=== PATIENT | female | born 1965 | race Caucasian/White ===

== ENCOUNTER → 2021-01-23 12:17 | Outpatient (CLI) | payer OTHER, SELFPAY ==
--- NOTE | 2021-01-23 12:20 | DI.MG.S_ITS ---
BILATERAL DIGITAL SCREENING MAMMOGRAM 3D/2D WITH CAD: 01/23/2021 CLINICAL: Routine screening. Comparison is made to exams dated: 01/18/2018 mammogram and 01/25/2018 mammogram - outside facility. There are scattered fibroglandular elements in both breasts. Current study was also evaluated with a Computer Aided Detection (CAD) system. No significant masses, calcifications, or other findings are seen in either breast. There has been no significant interval change. IMPRESSION: NEGATIVE There is no mammographic evidence of malignancy. A 1 year screening mammogram is recommended. This exam was interpreted at Station ID: [id number]. NOTE: For mammograms, a report in lay terms will be sent to the patient. Approximately 15% of breast malignancies will not be visualized mammographically. In the management of a palpable breast mass, a negative mammogram must not discourage biopsy of a clinically suspicious lesion. Electronically Signed By: Dario black/pinky:01/25/2021 09:31:51 letter sent: Normal Exam ACR BI-RADS Category 1: Negative [id number]
== END ==
PROVIDERS: Referring Provider Student in an Organized Health Care Education/Training Program; Visit Provider Student in an Organized Health Care Education/Training Program
DX: Z12.31 Encounter for screening mammogram for malignant neoplasm of breast (principal)
CPT/HCPCS: 77063; 77067

== ENCOUNTER → 2022-10-17 15:05 | Outpatient (CLI) | payer BC, SELFPAY ==
[2022-10-17 17:53] LABS: Creatinine Urine Random 64.2 mg/dL
[2022-10-17 18:01] LABS: Microalbumin Urine Random < 0.6 mg/dL (0-1.6)
== END ==
PROVIDERS: PCP Family Medicine; Visit Provider Family Medicine
DX: R03.0 Elevated blood-pressure reading, without diagnosis of hypertension (principal)
CPT/HCPCS: 82043; 82570

== ENCOUNTER → 2022-10-26 12:47 | Outpatient (CLI) | payer BC, SELFPAY ==
[2022-10-26 13:53] LABS: Hematocrit 38.5 % (36-46); Hemoglobin 13.1 g/dL (12.0-16.0); Mean Corpuscular Hemoglobin 30.4 PG (26-34); Mean Corpuscular Volume 89.3 fL (80-100); Platelet Count 230 X10^3/uL (150-400); Red Blood Cell Count 4.31 X10^6/uL (4.0-5.2); Red Cell Distribution Width 13.3 % (11.6-14.8); White Blood Cell Count 4.9 X10^3/uL (4.5-11.0)
[2022-10-26 14:46] LABS: BUN Creatinine Ratio 30.8 (6-22); Blood Urea Nitrogen 20 mg/dL (7-17); Calcium 9.6 mg/dL (8.4-10.2); Carbon Dioxide 28 mmol/L (22-32); Chloride 102 mmol/L (98-107); Estimated Glomerular Filt Rate > 60 mL/min (>60); Glucose 92 mg/dL (70-100); HEMOLYSIS < 15 (0-50); Potassium 4.3 mmol/L (3.4-5.1); Sodium 136 mmol/L (137-145)
[2022-10-26 15:13] LABS: TSH w/ Reflex to FT4 0.57 uIU/mL (0.47-4.68)
== END ==
PROVIDERS: PCP Family Medicine; Referring Provider Family Medicine; Visit Provider Family Medicine
DX: I10 Essential (primary) hypertension (principal); M35.1 Other overlap syndromes; M79.7 Fibromyalgia; R53.83 Other fatigue
CPT/HCPCS: 36415; 80048; 84443; 85027

== ENCOUNTER → 2022-12-23 09:37 | Outpatient (CLI) | payer MEDICARE, SELFPAY ==
--- NOTE | 2022-12-23 | DI.CT.S_ITS ---
PROCEDURE: CT CERVICAL SPINE WO CON INDICATIONS: Spinal stenosis, cervical region TECHNIQUE: Noncontrast 3 mm thick sections acquired from the skull base to the T4 level. Sagittal and coronal reformats were then constructed. For radiation dose reduction, the following was used: automated exposure control, adjustment of mA and/or kV according to patient size. COMPARISON: [facility], CR, XR CERVICAL SPINE 6+ VIEWS, 12/06/2022, 15:12. FINDINGS: Image quality: Excellent. Bones: No fractures or dislocations. Visualized superior ribs are intact. Anterior fixation hardware can be seen C4 through C7. The fusion plate is well seated. No screw abnormality can be seen. Disc spacers are seen throughout the fused region. No findings of hardware failure or hardware loosening are seen. Relatively prominent degenerative change can be seen involving the C1-C2 interface anteriorly. At C2-C3, there is moderate disc space narrowing. Bridging anterior osteophytes are seen. At C3-C4, relatively prominent bridging anterior osteophytes are seen. Moderate disc space narrowing is seen. Mild posteriorly directed endplate osteophytes can be seen at this level. There is moderate to severe left-sided and moderate right-sided neural foraminal narrowing. Moderate central canal narrowing is seen. At the C6-C7 level, posteriorly directed endplate osteophytes are seen, with moderate to severe central canal narrowing. There is moderate right-sided and moderate to severe left-sided neural foraminal narrowing. At C6-C7, moderate disc space narrowing can be seen. Bridging and tear osteophytes are seen at this level. Soft tissues: Prevertebral soft tissues are normal in thickness. No paravertebral hematomas. No apical pneumothoraces. IMPRESSION: Intact appearing C4 through C7 anterior fixation hardware. Multiple levels of significant cervical spine degenerative change can be seen. If it would be helpful for clinical management decision making, please consider a dedicated cervical spine MRI for further evaluation (assuming that there is no contraindication). Dictated by: Toñito Culver M.D. on 12/23/2022 at 9:53 Approved by: Toñito Culver M.D. on 12/23/2022 at 9:56
== END ==
PROVIDERS: PCP Family Medicine; Referring Provider Physical Medicine & Rehabilitation Pain Medicine; Visit Provider Physical Medicine & Rehabilitation Pain Medicine
DX: M48.02 Spinal stenosis, cervical region (principal); M47.812 Spondylosis without myelopathy or radiculopathy, cervical region; Z98.1 Arthrodesis status
CPT/HCPCS: 72125

== ENCOUNTER → 2022-12-26 11:06 | Outpatient (CLI) | payer MEDICARE, SELFPAY ==
--- NOTE | 2022-12-26 11:07 | DI.MG.S_ITS ---
BILATERAL DIGITAL SCREENING MAMMOGRAM 3D/2D WITH CAD: 12/26/2022 CLINICAL: Routine screening. Family history of breast cancer. Comparison is made to exams dated: 01/23/2021 mammogram - [facility], 01/25/2018 mammogram, and 01/18/2018 mammogram - outside facility. There are scattered areas of fibroglandular density in both breasts (category b / 25%-50% glandular tissue). Current study was also evaluated with a Computer Aided Detection (CAD) system. There is an asymmetry in the left breast posterior depth central to the nipple seen on the craniocaudal view only. This is more prominent. No other significant masses, calcifications, or other findings are seen in either breast. IMPRESSION: INCOMPLETE: NEEDS ADDITIONAL IMAGING EVALUATION The asymmetry in the left breast is indeterminate. Additional views with possible ultrasound are recommended. Based on the Tyrer Cuzick model (a risk assessment model) the patient's lifetime risk is 7.0% and her 10 year risk is 2.5%. According to the ACR, ACS, and NCCN guidelines, an annual breast MRI exam along with mammogram is recommended if the patient's lifetime risk is 20% or greater. This exam was interpreted at Station ID: [id number]. NOTE: For mammograms, a report in lay terms will be sent to the patient. Approximately 15% of breast malignancies will not be visualized mammographically. In the management of a palpable breast mass, a negative mammogram must not discourage biopsy of a clinically suspicious lesion. Electronically Signed By: Ruben Hill M.D. lc/:12/26/2022 12:08:25 letter sent: Additional Imaging Needed ACR BI-RADS Category 0: Incomplete 3340F
== END ==
PROVIDERS: PCP Family Medicine; Referring Provider Family Medicine; Visit Provider Family Medicine
DX: Z12.31 Encounter for screening mammogram for malignant neoplasm of breast (principal); Z80.3 Family history of malignant neoplasm of breast
CPT/HCPCS: 77063; 77067

== ENCOUNTER → 2023-01-05 07:10 | Outpatient (CLI) | payer BC, SELFPAY ==
[2023-01-05 09:11] LABS: Hematocrit 36.3 % (36-46); Hemoglobin 12.2 g/dL (12.0-16.0); Mean Corpuscular HGB Conc 33.6 % (30-36); Mean Corpuscular Hemoglobin 30.3 PG (26-34); Mean Corpuscular Volume 90.1 fL (80-100); Platelet Count 233 X10^3/uL (150-400); Red Blood Cell Count 4.03 X10^6/uL (4.0-5.2); Red Cell Distribution Width 13.9 % (11.6-14.8); White Blood Cell Count 4.2 X10^3/uL (4.5-11.0)
[2023-01-05 09:28] LABS: Alanine Aminotransferase 23 IU/L (<35); Albumin 4.2 g/dL (3.5-5.0); Albumin Globulin Ratio 1.6 (1.0-2.8); Alkaline Phosphatase 65 U/L (38-126); Aspartate Aminotransferase 32 IU/L (14-36); BUN Creatinine Ratio 30.3 (6-22); Bilirubin Total 0.6 mg/dL (0.2-1.3); Blood Urea Nitrogen 23 mg/dL (7-17); Calcium 9.4 mg/dL (8.4-10.2); Carbon Dioxide 29 mmol/L (22-32); Chloride 104 mmol/L (98-107); Cholesterol 199 mg/dL (140-199); Estimated Glomerular Filt Rate > 60 mL/min (>60); Globulin 2.7 g/dL (1.7-4.1); Glucose 78 mg/dL (70-100); HDL Cholesterol 104 mg/dL (40-60); HEMOLYSIS < 15 (0-50); LDL Cholesterol Calculated 80 mg/dL (<100); Potassium 4.8 mmol/L (3.4-5.1); Sodium 139 mmol/L (137-145); Total Protein 6.9 g/dL (6.3-8.2); Triglycerides 75 mg/dL (35-150)
== END ==
PROVIDERS: PCP Family Medicine; Referring Provider Family Medicine; Visit Provider Family Medicine
DX: I10 Essential (primary) hypertension (principal); M35.1 Other overlap syndromes; M79.7 Fibromyalgia
CPT/HCPCS: 36415; 80053; 80061; 85027

== ENCOUNTER → 2023-01-19 08:43 | Outpatient (CLI) | payer BC, SELFPAY ==
--- NOTE | 2023-01-19 08:44 | DI.US.S_ITS ---
LIMITED ULTRASOUND OF LEFT BREAST: 01/19/2023 CLINICAL: Patient returns today to evaluate a focal asymmetry in the left breast. Comparison is made to exams dated: 01/19/2023 mammogram, 12/26/2022 mammogram, 01/23/2021 mammogram - [facility], and 01/25/2018 mammogram - outside facility. Color flow ultrasound of the left breast 11-12 o'clock region was performed. York scale images of the real-time examination were reviewed. There is a 0.4 cm x 0.4 cm x 0.2 cm oval mass with a circumscribed margin in the left breast at 11 o'clock middle depth 5 cm from the nipple. This oval mass is hypoechoic with posterior acoustic enhancement. This correlates with mammography findings. Color flow imaging demonstrates that there is no vascularity present. IMPRESSION: PROBABLY BENIGN The 0.4 cm x 0.4 cm x 0.2 cm oval mass in the left breast most likely is a complicated cyst or a lymph node and is probably benign. A follow-up left mammogram and an ultrasound in 6 months is recommended to demonstrate stability. This exam was interpreted at Station ID: [id number]. Electronically Signed By: Dario black/pinky:01/19/2023 09:49:14 letter sent: Followup Recommended Ultrasound BI-RADS: 3 Probably benign
--- NOTE | 2023-01-19 08:44 | DI.MG.S_ITS ---
UNILATERAL LEFT DIGITAL DIAGNOSTIC MAMMOGRAM 3D/2D WITH ADDITIONAL VIEWS: 01/19/2023 CLINICAL: Additional evaluation requested from prior study. Comparison is made to exams dated: 12/26/2022 mammogram, 01/23/2021 mammogram - [facility], and 01/25/2018 mammogram - outside facility. There are scattered areas of fibroglandular density in the left breast (category b / 25%-50% glandular tissue). There is a 0.5 cm oval focal asymmetry with an obscured margin in the left breast at 11 o'clock middle depth. This is seen in additional views. No other significant masses or calcifications are seen in the breast. IMPRESSION: INCOMPLETE: NEEDS ADDITIONAL IMAGING EVALUATION The 0.5 cm oval focal asymmetry in the left breast is indeterminate. An ultrasound is recommended. Based on the Tyrer Cuzick model (a risk assessment model) the patient's lifetime risk is 7.0% and her 10 year risk is 2.5%. According to the ACR, ACS, and NCCN guidelines, an annual breast MRI exam along with mammogram is recommended if the patient's lifetime risk is 20% or greater. This exam was interpreted at Station ID: [id number]. NOTE: For mammograms, a report in lay terms will be sent to the patient. Approximately 15% of breast malignancies will not be visualized mammographically. In the management of a palpable breast mass, a negative mammogram must not discourage biopsy of a clinically suspicious lesion. Electronically Signed By: Dario black/pinky:01/19/2023 09:47:37 ACR BI-RADS Category 0: Incomplete 3340F
== END ==
PROVIDERS: PCP Family Medicine; Referring Provider Family Medicine; Visit Provider Family Medicine
DX: R92.8 Other abnormal and inconclusive findings on diagnostic imaging of breast (principal); N63.22 Unspecified lump in the left breast, upper inner quadrant
CPT/HCPCS: 76642; 77065; G0279

== ENCOUNTER → 2023-10-05 08:40 | Outpatient (CLI) | payer BC, SELFPAY ==
--- NOTE | 2023-10-05 08:41 | DI.MG.S_ITS ---
UNILATERAL LEFT DIGITAL DIAGNOSTIC MAMMOGRAM 3D/2D SHORT-TERM FOLLOW-UP: 10/05/2023 CLINICAL: Patient returns for a 6 month follow up of the left breast. Comparison is made to exams dated: 01/19/2023 mammogram, 12/26/2022 mammogram, 01/23/2021 mammogram - [facility], and 01/25/2018 mammogram - outside facility. There are scattered areas of fibroglandular density in the left breast (category b / 25%-50% glandular tissue). There is a stable oval focal asymmetry in the left breast at 11 o'clock middle depth. No other significant masses or calcifications are seen in the breast. IMPRESSION: INCOMPLETE: NEEDS ADDITIONAL IMAGING EVALUATION The stable oval focal asymmetry in the left breast is indeterminate. An ultrasound is recommended. Based on the Tyrer Cuzick model (a risk assessment model) the patient's lifetime risk is 7.0% and her 10 year risk is 2.5%. According to the ACR, ACS, and NCCN guidelines, an annual breast MRI exam along with mammogram is recommended if the patient's lifetime risk is 20% or greater. This exam was interpreted at Station ID: [id number]. NOTE: For mammograms, a report in lay terms will be sent to the patient. Approximately 15% of breast malignancies will not be visualized mammographically. In the management of a palpable breast mass, a negative mammogram must not discourage biopsy of a clinically suspicious lesion. Electronically Signed By: Ruben Hill M.D. lc/:10/05/2023 09:42:47 ACR BI-RADS Category 0: Incomplete 3340F
--- NOTE | 2023-10-05 08:41 | DI.US.S_ITS ---
ULTRASOUND OF LEFT BREAST: 10/05/2023 CLINICAL: Late 6 month follow-up of cyst. Comparison is made to exams dated: 10/05/2023 mammogram, 01/19/2023 ultrasound, 01/19/2023 mammogram, 12/26/2022 mammogram, and 01/23/2021 mammogram - [facility]. Real-time ultrasound of the left breast was performed. York scale images of the real-time examination were reviewed. There is a 0.4 cm x 0.4 cm x 0.3 cm oval mass with a circumscribed margin in the left breast at 11 o'clock middle depth 5 cm from the nipple. This oval mass is hypoechoic with posterior acoustic enhancement. This correlates with mammography findings. Color flow imaging demonstrates that there is no vascularity present. IMPRESSION: PROBABLY BENIGN The 0.4 cm x 0.4 cm x 0.3 cm oval mass in the left breast most likely is a complicated cyst or a lymph node and is probably benign. A follow-up mammogram and an ultrasound in 6 months is recommended to demonstrate stability. This exam was interpreted at Station ID: [id number]. Electronically Signed By: Ruben Hill M.D. lc/:10/05/2023 09:43:59 letter sent: Followup Recommended Ultrasound BI-RADS: 3 Probably benign
== END ==
LOC: MAMMO 08:41
PROVIDERS: PCP Family Medicine; Referring Provider Family Medicine; Visit Provider Family Medicine
DX: R92.8 Other abnormal and inconclusive findings on diagnostic imaging of breast (principal); R92.322 Mammographic fibroglandular density, left breast; N63.22 Unspecified lump in the left breast, upper inner quadrant
CPT/HCPCS: 76642; 77065; G0279

== ENCOUNTER → 2024-03-26 15:10 | Outpatient (CLI) | payer BC, SELFPAY | PROVIDERS: PCP Family Medicine; Visit Provider Family Medicine | DX: N32.89 Other specified disorders of bladder (principal); R30.0 Dysuria | CPT/HCPCS: 87086 ==

== ENCOUNTER → 2024-04-12 13:42 | Outpatient (CLI) | payer BC, SELFPAY ==
--- NOTE | 2024-04-12 13:43 | DI.MG.S_ITS ---
BILATERAL DIGITAL DIAGNOSTIC MAMMOGRAM 3D/2D: 04/12/2024 CLINICAL: Patient returns for a 6 month follow up of the left breast, due for bilateral exam. Comparison is made to exams dated: 10/05/2023 mammogram, 01/19/2023 mammogram, 12/26/2022 mammogram, 01/23/2021 mammogram, and 10/05/2023 ultrasound - [facility]. There are scattered areas of fibroglandular density (category b / 25%-50% glandular tissue). There is a stable oval focal asymmetry in the left breast at 11 o'clock middle depth. No other significant masses, calcifications, or other findings are seen in either breast. IMPRESSION: INCOMPLETE: NEED ADDITIONAL IMAGING EVALUATION The stable oval focal asymmetry in the left breast is indeterminate. A targeted ultrasound is recommended and will immediately follow. Based on the Tyrer Cuzick model (a risk assessment model) the patient's lifetime risk is 7.1% and her 10 year risk is 2.7%. According to the ACR, ACS, and NCCN guidelines, an annual breast MRI exam along with mammogram is recommended if the patient's lifetime risk is 20% or greater. This exam was interpreted at Station ID: [id number]. NOTE: For mammograms, a report in lay terms will be sent to the patient. Approximately 15% of breast malignancies will not be visualized mammographically. In the management of a palpable breast mass, a negative mammogram must not discourage biopsy of a clinically suspicious lesion. Electronically Signed By: Ramírez Fuentes M.D. [facility]/:04/12/2024 14:22:43 Entry: - 04/15/2024 15:18:15 letter sent: Need Ultrasound ACR BI-RADS Category 0: Incomplete: Need Additional Imaging Evaluation
--- NOTE | 2024-04-12 13:43 | DI.US.S_ITS ---
LIMITED ULTRASOUND OF LEFT BREAST: 04/12/2024 CLINICAL: Patient returns today to evaluate a focal asymmetry in the left breast. Comparison is made to exams dated: 04/12/2024 mammogram, 10/05/2023 ultrasound, 10/05/2023 mammogram, 01/19/2023 ultrasound, 01/19/2023 mammogram, and 12/26/2022 mammogram - [facility]. Color flow and real-time ultrasound of the left breast 11-1 o'clock region were performed. York scale images of the real-time examination were reviewed. There is a stable 0.4 cm x 0.4 cm x 0.3 cm oval mass with a circumscribed margin in the left breast at 11 o'clock middle depth 5 cm from the nipple. This oval mass is hypoechoic with posterior acoustic enhancement. This correlates with mammography findings. Color flow imaging demonstrates that there is no vascularity present. IMPRESSION: PROBABLY BENIGN The stable 0.4 cm mass in the left breast most likely is a complicated cyst or a lymph node and is probably benign. A follow-up mammogram and an ultrasound in 12 months is recommended to demonstrate long-term stability. Exam findings were conveyed to the patient. This exam was interpreted at Station ID: [id number]. Electronically Signed By: Ramírez Fuentes M.D. slc/:04/12/2024 14:53:25 letter sent: Followup Recommended ACR BI-RADS Category 3: Probably Benign
== END ==
PROVIDERS: PCP Family Medicine; Referring Provider Family Medicine; Visit Provider Family Medicine
DX: R92.8 Other abnormal and inconclusive findings on diagnostic imaging of breast (principal); N63.22 Unspecified lump in the left breast, upper inner quadrant
CPT/HCPCS: 76642; 77066; G0279

== ENCOUNTER → 2024-09-12 13:42 | Outpatient (CLI) | payer BC, SELFPAY ==
--- NOTE | 2024-09-12 13:43 | DI.RAD.S_ITS ---
PROCEDURE: XR DEXA AXIAL SKELETON INDICATIONS: Screening for Osteoporsis COMPARISON: None. FINDINGS: Lumbar Spine: Bone mineral density 1.124 g/cm2, T score 0.7. Left Femoral Neck: Bone mineral density 0.707 g/cm2, T score -1.3. Left Hip: Bone mineral density 0.938 g/cm2, T score 0.0. Fracture Risk Calculation (when applicable): 10-year fracture risk of a major osteoporotic fracture 7.7 percent and of a hip fracture 0.6 percent. (T score greater or equal to -1.0 to: NORMAL) (T score from -1.1 to -2.4: OSTEOPENIA) (T score less than or equal to -2.5: OSTEOPOROSIS) IMPRESSION: Low bone mineral density (osteopenia) by WHO classification. Follow-up guidelines as follows: Osteoporosis: Consider a repeat DEXA and Vertebral Fracture Assessment (VFA) exam in 2 years or sooner if medically necessary, to reassess this patient's status. Osteopenia: Consider a repeat DEXA in 2-3 years to reassess this patient's status, or if there is a new clinical indication. Normal: Consider a repeat DEXA in 5 years or sooner, or if there is a new clinical indication. All treatment decisions require clinical judgment and consideration of individual patient factors, including patient preferences, comorbidities, previous drug use, risk factors not captured in the FRAX model (e.g., frailty, falls, vitamin D deficiency, increased bone turnover, interval significant decline in bone density ) and possible under- or over-estimation of fracture risk by FRAX. In addition, the NOF Guide recommends that FDA-approved medical therapies be considered in postmenopausal women and men age >= 50 years with a: * Hip or vertebral (clinical or morphometric) fracture * T-score of <=-2.5 at the spine or hip * Ten-year fracture probability by FRAX of >= 3% for hip fracture or >=20% for major osteoporotic fracture. Dictated by: Ken Bangura M.D. on 09/13/2024 at 11:14 Approved by: Ken Bangura M.D. on 09/13/2024 at 11:23
== END ==
PROVIDERS: PCP Family Medicine; Referring Provider Family Medicine; Visit Provider Family Medicine
DX: M85.89 Other specified disorders of bone density and structure, multiple sites (principal); M85.852 Other specified disorders of bone density and structure, left thigh
CPT/HCPCS: 77080